=== PATIENT | female | born 1940 | race Hispanic/Latino ===

== ENCOUNTER 2017-05-12 06:17 | Day surgery (SDC) | payer BC, MEDICARE ==
[2017-05-08 11:32] VITALS: BMI 35.2
[2017-05-12] MEDS ORDERED: Lidocaine 2% Inj (20ml) ONE (06:46)
[2017-05-12] MEDS ORDERED: Iodixanol 320 MG/ML 100 ML BOTTLE IV ONE ×2 (06:46→08:24)
[2017-05-12] MEDS ORDERED: Nitroglycerin 50mg in D5W 50 MG/250 ML BOTTLE IV ONE (06:47)
[2017-05-12] MEDS ORDERED: Midazolam 2 MG/2 ML VIAL ONE ×2 (07:02→08:00)
[2017-05-12 07:08] LABS: BASO # 0.03 K/mm3 (0.0-2.0); BASO % 0.5 % (0.0-3.0); EOS # 0.1 (0.0-0.7); EOS % 1.9 % (1.5-5.0); GRAN # 4.09 (1.4-6.5); GRAN % 63.6 % (50.0-68.0); HEMOGLOBIN 11.8 g/dL (12.0-16.0); LYMPH # 1.6 (1.2-3.4); LYMPH % 25.3 % (22.0-35.0); MEAN CORPUSCULAR HEMOGLOBIN 31.8 pg (25.0-35.0); MEAN CORPUSCULAR HGB CONC 30.9 g/dl (31.0-37.0); MEAN PLATELET VOLUME 9.6 fl (7.0-11.0); MONO # 0.6 (0.1-0.6); MONO % 8.7 % (1.0-6.0); PLATELET COUNT 209 10^3/uL (120.0-450.0); RBC 3.71 10^6/uL (3.5-6.1); RED CELL DISTRIBUTION WIDTH 15.8 % (11.5-14.5); WHITE BLOOD COUNT 6.4 10^3/ul (4.5-11.0)
[2017-05-12 07:13] LABS: INR 1.04 (0.93-1.08); PARTIAL THROMBOPLASTIN TIME 25.7 Seconds (23.7-30.8); PROTHROMBIN TIME 11.2 Seconds (9.9-11.8)
[2017-05-12 07:19] LABS: CALCIUM 9.4 mg/dL (8.4-10.5)
[2017-05-12] MEDS ORDERED: Oxycodone/Acetaminophen 5/325 mg Tab PO PRN (08:50)
[2017-05-12 09:46] VITALS: PULSE 86; RESP 20; TEMP 98.7; O2SAT 94
[2017-05-12 10:41] VITALS: BP 113/49
--- NOTE | 2017-05-12 21:25 | VASCULAR ---
PROCEDURE: 1. Left upper extremity AV fistula angiogram. 2. Perianastomotic venous angioplasty HISTORY: End-stage renal disease. Malfunctioning AV access PHYSICIAN(S): Micah Clement MD. TECHNIQUE: The relative risks and indications of the procedure were explained to the patient and consent obtained. The patient was placed supine on the angiography table and the left arm prepped and draped in usual sterile fashion. Conscious sedation and monitoring provided throughout the procedure by a nurse. The left arm AV fistula was punctured under ultrasound guidance near the arterial anastomosis with a micropuncture set. A 5 [place] catheter was placed. An overlapping left upper extremity AV fistula angiogram was performed. Central venous imaging was obtained. With some difficulty, the tandem severe stenoses in the proximal cephalic vein were crossed with 0.035 Bentson wire. Exchange is made for 0.035 support wire. A 6 [place] sheath was placed at the puncture site. The tandem critical stenoses in the proximal left cephalic vein were dilated with 7 and 8 mm balloons. A good angiographic result was obtained with brisk antegrade flow. No stent was required. The sheath was removed and hemostasis obtained with a purse string suture. The patient tolerated the procedure well. FINDINGS: There are tandem critical stenoses in the proximal left cephalic vein in the perianastomotic region. Two associated moderate size pseudoaneurysms are seen. The left cephalic vein beyond this point is well developed and normal in appearance. The left subclavian vein, left innominate vein, and superior vena cava are patent. Pacemaker leads are seen from the right. IMPRESSION: 1. 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 2. Successful venous angioplasty with 7 and 8 mm balloons. 3. No central venous occlusive disease.
== END 2017-05-12 11:15 | disposition home or self-care (01) ==
LOC: SDSVAS 06:17
PROVIDERS: ATTEND Radiology Vascular & Interventional Radiology
DX: T82.898A Other specified complication of vascular prosthetic devices, implants and grafts, initial encounter (principal); Y83.2 Surgical operation with anastomosis, bypass or graft as the cause of abnormal reaction of the patient, or of later complication, without mention of misadventure at the time of the procedure; N18.6 End stage renal disease; E11.22 Type 2 diabetes mellitus with diabetic chronic kidney disease; Z99.2 Dependence on renal dialysis; I25.10 Atherosclerotic heart disease of native coronary artery without angina pectoris
CPT/HCPCS: 36415; 36902; 80048; 85025; 85610; 85730; 99152; 99153; C1725 ×2; C1769 ×4; C1894; J1644; J2250; J2405; J3010; Q9967